=== PATIENT | female | born 1985 | race Caucasian/White ===

== ENCOUNTER 2017-09-02 06:44 | Emergency (ER) | payer OTHER ==
[~2017-09-02] VITALS: Ht 167.6 cm; Wt 81.7 kg
[~2017-09-02 06:44] MED LIST: BIRTH CONTROL; CEFD300 PO; HYDACE5 PO; OMEP10ER PO; OXYACE5T PO; RXOXYACE PO; SULTRIDS PO; VITS
[2017-09-02 07:19] LABS: Source, Urine Clean Catch
[2017-09-02] MEDS ORDERED: LEXAPRO PO (07:25)
[2017-09-02] MEDS ORDERED: ALPR.5 PO (07:25)
[2017-09-02 07:36] LABS: BASOPHILS ABSOLUTE AUTO 0.03 K/mm3 (0.00-0.23); BASOPHILS PERCENT AUTO 0 % (0-2); EOSINOPHILS PERCENT AUTO 0 % (0-6); Hemoglobin 14.1 g/dL (11.5-16.0); IMMATURE GRAN ABSOLUTE AUTO 0.03 K/mm3 (0.00-0.10); IMMATURE GRAN PERCENT AUTO 0 % (0-1); LYMPHOCYTES ABSOLUTE AUTO 0.53 K/mm3 (0.84-5.20); LYMPHOCYTES PERCENT AUTO 4 % (21-46); MONOCYTES ABSOLUTE AUTO 0.86 K/mm3 (0.16-1.47); MONOCYTES PERCENT AUTO 6 % (4-13); Mean Corpuscular HGB 29.9 pg (26.0-34.0); Mean Corpuscular HGB Conc 33.6 g/dL (31.5-36.5); Mean Corpuscular Volume 89 fL (80-100); Mean Platelet Volume 8.9 fL (9.1-12.4); NEUTROPHILS ABSOLUTE AUTO 13.45 K/mm3 (1.96-9.15); NEUTROPHILS PERCENT AUTO 90 % (41-73); Platelet Count 248 K/mm3 (150-400); RDW Coefficient Variation 12.5 % (11.7-14.2); RDW Standard Deviation 41.3 fL (35.1-46.3); Red Blood Cell Count 4.71 M/mm3 (3.80-5.20)
[2017-09-02 07:49] LABS: Bilirubin, Urine Neg (Neg); Blood, Urine 3+ (Neg); Glucose Qualitative, Urine Neg (Neg); Ketones, Urine Neg (Neg); Leukocyte Esterase, Urine 1+ (Neg); Nitrite, Urine Neg (Neg); Protein, Urine Neg (Neg); Urobilinogen, Urine NORM (Normal)
[2017-09-02 07:54] LABS: Alanine Aminotransfer (ALT/SGP 27 U/L (12-78); Albumin/Globulin Ratio 1.3 (0.8-1.8); Alk Phos 54 U/L (50-136); Anion Gap 6 mmol/L (6-16); Aspartate Aminotrans (AST/SGOT 40 U/L (12-37); Bilirubin, Total 0.5 mg/dL (0.1-1.0); Blood Urea Nitrogen 10 mg/dL (8-24); Bun/Creatinine Ratio 15.5 (12.0-20.0); CO2, Blood 25 mmol/L (21-32); Calcium, Blood 8.5 mg/dL (8.5-10.1); Chloride, Blood 110 mmol/L (98-108); Creatinine, Blood 0.65 mg/dL (0.40-1.00); Glomerular Filtration Rate >60 (60-); Glucose, Blood 114 mg/dL (70-99); Potassium, Blood 3.5 mmol/L (3.5-5.5); Sodium, Blood 141 mmol/L (136-145)
[2017-09-02 08:02] LABS: U Amphetamine Screen Not Detected; U Barbituate Screen Not Detected; U Benzodiazapine Screen Not Detected; U Buprenorphine Screen Not Detected; U Cannabinoids Screen DETECTED; U Cocaine Screen Not Detected; U Methadone Screen Not Detected; U Methamphetamine Screen Not Detected; U Opiates Screen DETECTED; U Oxycodone Screen Not Detected; U Phencyclidine Screen Not Detected; U Propoxyphene Screen Not Detected
[2017-09-02 08:03] LABS: Appearance, Urine Clear (Clear); Color, Urine Yellow (P-Yellow)
[2017-09-02 08:06] LABS: Bacteria Mod /hpf; Squamous Epithelial Cells Mod /hpf (Few); White Blood Cells, Urine 0-2 /hpf (0-5)
[2017-09-02] MEDS ORDERED: Norco 10-325 T1 EACH PO (11:09)
[2017-09-02] MEDS ORDERED: Zofran Odt4 MG SL (11:09)
[2017-09-02] MEDS ORDERED: IBUP800 PO (11:09)
== END 2017-09-02 11:25 | disposition home or self-care (01) ==
LOC: ER 06:44
PROVIDERS: Emergency Medicine
DX: S22.011A Stable burst fracture of first thoracic vertebra, initial encounter for closed fracture (principal); S22.021A Stable burst fracture of second thoracic vertebra, initial encounter for closed fracture; S22.031A Stable burst fracture of third thoracic vertebra, initial encounter for closed fracture; S70.12XA Contusion of left thigh, initial encounter; S00.211A Abrasion of right eyelid and periocular area, initial encounter; S60.511A Abrasion of right hand, initial encounter; V89.2XXA Person injured in unspecified motor-vehicle accident, traffic, initial encounter; Z79.899 Other long term (current) drug therapy; F17.200 Nicotine dependence, unspecified, uncomplicated
CPT/HCPCS: 36415; 70450; 71046; 71260; 72125; 73030; 73110; 74177; 80053; 81001; 81025; 85025; 87086; 90471; 90714; 96361; 96374; 96375; 99285; J2405; J3010; J7030; Q9967

== ENCOUNTER → 2020-03-20 | Outpatient (CLI) | payer OTHER ==
[~2020-03-20] MED LIST changes: +ALPR.5 PO; +IBUP800 PO; +LEXAPRO PO; +Norco 10-325 T1 EACH PO; +Zofran Odt4 MG SL
[2020-03-21 16:07] LABS: HPV 16 Negative (Negative); HPV 18 Negative (Negative); HPV OTHER HR TYPES Negative (Negative)
== END ==
LOC: LAB SHORT 15:18 → LAB UCHC 15:18
PROVIDERS: Registered Nurse Community Health
DX: Z12.4 Encounter for screening for malignant neoplasm of cervix (principal); R87.619 Unspecified abnormal cytological findings in specimens from cervix uteri; Z87.42 Personal history of other diseases of the female genital tract
CPT/HCPCS: 87624; G0123

== ENCOUNTER → 2020-04-20 | Outpatient (CLI) | payer OTHER ==
[~2020-04-20] MED LIST changes: +AMPDEX5 PO; +APRI 28 DAY TA1 EACH PO; +PRENATAL TABLE1 EAC2 PO; +[UNRECOGNIZED DRUG - OTHER] PO
== END ==
LOC: LAB SHORT 08:53 → PLD 08:53
DX: N87.9 Dysplasia of cervix uteri, unspecified (principal)
CPT/HCPCS: 88305

== ENCOUNTER 2020-06-18 09:12 | Day surgery (SDC) | payer OTHER ==
[~2020-06-18] VITALS: Ht 167.6 cm; Wt 82.8 kg
[~2020-06-18 09:12] MED LIST changes: -AMPDEX5 PO
[2020-06-18] MEDS ORDERED: AMPDEX5 PO ×2 (09:51→09:52)
--- NOTE | 2020-06-18 10:00 | NUR ---
Ambulatory in Day Surgery History, Chart, Medications and Allergies reviewed before start of procedure.Lungs clear T/O to Auscultation. Pre-Op teaching done. Pt verbalizes understanding. PT reports drinking water this morning, Dr Mckeon notified and wants to procede with procedure.
--- NOTE | 2020-06-18 11:29 | NUR ---
06/18/20 1129 Mallory Johnson CONFIRMED WITH DR CHANG NO ANTIBIOTICS INDICATED.
--- NOTE | 2020-06-18 13:07 | NUR ---
PT TO STEPDOWN. AWAKE/ORIENTED, CONVERSING WITH STAFF. STATES PAIN IS AT A TOLERABLE LEVEL- RATES 3/10. NO OTHER C/O AT THIS TIME.
--- NOTE | 2020-06-18 13:14 | NUR ---
PT C/O NAUSEA - MED WITH IV ZOFRAN PER ORDERS. PT RESTING WITH EYES CLOSED IF LEFT UNDISTURBED.
--- NOTE | 2020-06-18 13:30 | NUR ---
PT STATES NAUSEA SLIGHTLY IMPROVED. DOES NOT DESIRE ANY FURTHER MEDICATION AT THIS POINT. WILL CONT TO MONITOR AND REASSESS NEEDED. PT CONT TO LAY WITH EYES CLOSED IF LEFT UNDISTURBED.
--- NOTE | 2020-06-18 13:52 | NUR ---
PT AMBULATED TO BATHROOM AND BACK WITHOUT DIFFICULTY. STEADY ON FEET. VOIDED WITHOUT DIFFICULTY. PT STATES SHE FEELS THAT SHE EMPTIED HER BLADDER.
--- NOTE | 2020-06-18 14:13 | NUR ---
REVIEWED DISCHARGE INSTRUCTIONS WITH PATIENT WHO VERBALIZED UNDERSTANDING OF ALL. IV DC TIP INTACT. PT DRESSED SELF WITHOUT DIFFICULTY. TOLERATED ACTIVITY WELL. [facility] WILL BE HERE IN APPROX 10 MINUTES. THIS RN WILL DC PATIENT HOME VIA WC WITH VERIFICATION OF [facility] TO PICK HER UP.
== END 2020-06-18 23:40 | disposition home or self-care (01) ==
LOC: ORSCMMR 09:12 → ORD 10:30 → ORSCMMR 23:40
PROVIDERS: Obstetrics & Gynecology
PROC: 0UDB8ZX Extraction of Endometrium, Via Natural or Artificial Opening Endoscopic, Diagnostic (ICD-10-PCS; principal; 2020-06-18 10:30)
PROC: 0U5F4ZZ Destruction of Cul-de-sac, Percutaneous Endoscopic Approach (ICD-10-PCS; principal; 2020-06-18 10:30)
DX: R87.611 Atypical squamous cells cannot exclude high grade squamous intraepithelial lesion on cytologic smear of cervix (ASC-H) (principal); N93.9 Abnormal uterine and vaginal bleeding, unspecified; N88.2 Stricture and stenosis of cervix uteri; N80.3 Endometriosis of pelvic peritoneum; R10.2 Pelvic and perineal pain
CPT/HCPCS: 88305; J0330; J1885; J2250; J2405; J2765; J3010; J7120

== ENCOUNTER → 2021-04-11 | Outpatient (CLI) | payer OTHER ==
[~2021-04-11] MED LIST changes: +AMPDEX5 PO
[2021-04-12 15:10] LABS: HPV 16 Negative (Negative); HPV 18 Negative (Negative); HPV OTHER HR TYPES Negative (Negative)
[2021-04-15 10:08] LABS: FREE TESTOSTERONE(DIRECT) 1.9 pg/mL (0.0-4.2)
== END ==
LOC: LAB SHORT 18:02 → LAB 18:02
PROVIDERS: Registered Nurse Community Health
DX: Z12.4 Encounter for screening for malignant neoplasm of cervix (principal); R68.82 Decreased libido
CPT/HCPCS: 84402; 84403; 87624; G0123

== ENCOUNTER → 2022-12-31 | Outpatient (CLI) | payer OTHER ==
[2023-01-05 15:09] LABS: HPV 16 Negative (Negative); HPV 18 Negative (Negative); HPV OTHER HR TYPES Negative (Negative)
== END ==
LOC: LAB 16:15 → LAB SHORT 16:15
PROVIDERS: Registered Nurse Community Health
DX: Z12.4 Encounter for screening for malignant neoplasm of cervix (principal)
CPT/HCPCS: 87624; G0145